=== PATIENT | male | born 1975 | race Caucasian/White ===

== ENCOUNTER 2018-03-28 10:09 | Inpatient (IN) | payer OTHER ==
[~2018-03-28 10:09] MED LIST: CEFAZOLIN 1 GM INJ; GLYCOPYRROLATE 0.4 MG INJ; NEOSTIGMINE 3 MG/3 ML SYRINGE; ROCURONIUM 50 MG INJ
[2018-03-28] MEDS: D5W-0.45 NACL + KCL 20 MEQ 1,000 ML IV (12:22)
[2018-03-28] MEDS ORDERED: CYCLOBENZAPRINE 10 MG TAB PO (12:30)
[2018-03-28] MEDS ORDERED: HYDROmorphONE 1 MG/5 ML IV SYRINGE IV ×2 (12:30)
[2018-03-28] MEDS ORDERED: HYDROmorphONE 0.5 MG/0.5 ML SYG IV (12:30)
[2018-03-28] MEDS ORDERED: AL HYDROX/MG HYDROX/SIMETH 30 ML CUP PO (12:30)
[2018-03-28] MEDS ORDERED: NALOXONE (0.4 MG/ML) INJ IV (12:30)
[2018-03-28] MEDS ORDERED: HYDROCODONE/APAP (10/325) TAB PO ×2 (12:30)
[2018-03-28] MEDS ORDERED: ZOLPIDEM 5 MG TAB PO (12:30)
[2018-03-28] MEDS ORDERED: BISACODYL 10 MG SUPP PR (12:30)
[2018-03-28] MEDS ORDERED: ACETAMINOPHEN 325 MG TAB PO (12:30)
[2018-03-28] MEDS: CEFAZOLIN 1 GM/50 ML (PMX) 50 ML IVPB (12:30)
[2018-03-28] MEDS ORDERED: CEPASTAT LOZENGE MT (12:30)
[2018-03-28] MEDS ORDERED: POLYMYXIN/BACITRACIN 1L IRRIG (12:36)
[2018-03-28] MEDS ORDERED: SUCCINYLCHOLINE CHLORIDE 100 MG/5 ML SYG IV (12:52)
[2018-03-28] MEDS ORDERED: MIDAZOLAM 1 MG/ML 2 ML INJ (12:52)
[2018-03-28] MEDS ORDERED: LIDOCAINE 1% (MDV) 20 ML INJ (12:52)
[2018-03-28] MEDS ORDERED: PROPOFOL 20 ML (12:52)
[2018-03-28] MEDS ORDERED: DEXAMETHASONE 4 MG/ML 1 ML INJ (13:32)
[2018-03-28] MEDS ORDERED: ONDANSETRON 4 MG INJ (13:32)
[2018-03-28] MEDS ORDERED: FAMOTIDINE 20 MG INJ (14:03)
[2018-03-28] MEDS: BUPIVACAINE 0.25%/EPI (SDV) 30 ML INJ (14:12)
[2018-03-28] MEDS: BUPIVACAINE 0.25% (MPF) 30 ML INJ (14:12)
[2018-03-28] MEDS: HEPARIN 1000 UNITS/ML 10 ML INJ (14:16)
[2018-03-28] MEDS ORDERED: THROMBIN 5000 UNIT VIAL (14:17)
[2018-03-28] MEDS: CA CHLORIDE 10% 10 ML SYRINGE (14:21)
[2018-03-28] MEDS: THROMBIN 5000 UNIT VIAL (14:23)
[2018-03-28] MEDS: SURGIFOAM POWDER 1 GM KIT (14:24)
[2018-03-28] MEDS: ONDANSETRON 4 MG INJ IV (15:30)
[2018-03-28] MEDS: DIPHENHYDRAMINE 50 MG INJ IV (15:30)
[2018-03-28] MEDS ORDERED: GLYCOPYRROLATE 1 MG INJ (15:34)
[2018-03-28] MEDS ORDERED: DOCUSATE SODIUM 100 MG CAP PO (21:00)
== END 2018-03-28 19:05 | disposition home or self-care (01) | DRG 520 ==
LOC: REC 10:09 → MS1 17:00
PROC: 0SB40ZZ Excision of Lumbosacral Disc, Open Approach (ICD-10-PCS; principal; 2018-03-28 12:00)
PROC: 4A11X4G Monitoring of Peripheral Nervous Electrical Activity, Intraoperative, External Approach (ICD-10-PCS; 2018-03-28 12:00)
DX: M51.17 Intervertebral disc disorders with radiculopathy, lumbosacral region (principal)
CPT/HCPCS: 72020; 86999; 88304